=== PATIENT | female | born 1985 | race Two or more races ===

== ENCOUNTER 2018-06-01 10:54 | Emergency (ER) | payer OTHER ==
[~2018-06-01] VITALS: Ht 154.9 cm; Wt 59.0 kg
== END 2018-06-01 16:12 | disposition home or self-care (01) ==
LOC: ER 10:54
DX: M54.5 Low back pain (principal)

== ENCOUNTER 2018-10-02 08:51 | Emergency (ER) | payer OTHER ==
[~2018-10-02] VITALS: Ht 154.9 cm; Wt 61.7 kg
== END 2018-10-02 12:25 | disposition home or self-care (01) ==
LOC: ER 08:51
DX: R07.89 Other chest pain (principal); F06.4 Anxiety disorder due to known physiological condition

== ENCOUNTER → 2019-07-02 | Emergency (ER) | payer OTHER ==
[~2019-07-02] VITALS: Ht 154.9 cm; Wt 61.2 kg
== END | disposition left against medical advice (07) ==
LOC: ER 10:52
DX: K52.9 Noninfective gastroenteritis and colitis, unspecified (principal)

== ENCOUNTER 2023-11-11 08:50 | Outpatient (CLI) | payer OTHER | END 2023-11-11 09:20 | disposition home or self-care (01) | LOC: RX STUDY 08:50 | PROVIDERS: ATTEND Obstetrics & Gynecology Reproductive Endocrinology | DX: N93.0 Postcoital and contact bleeding (principal) ==